=== PATIENT | female | born 1950 | race Caucasian/White ===

== ENCOUNTER 2024-10-18 06:00 | Day surgery (SDC) | payer OTHER ==
[~2024-10-18 06:00] MED LIST: ACTIVELLA 1 MG1 EACH PO; LEVOTHYROXINE25 MCG PO; LEXAPRO5 MG PO; ROSUVASTATIN CA20 MG PO
[2024-10-18] MEDS ORDERED: TRAM1TAB98 PO (09:47)
[2024-10-18] MEDS ORDERED: CHLORHEXIDINE GLUCONATE 120 ML BOTTLE TOP ONE (14:00)
[2024-10-18] MEDS ORDERED: LIDOCAINE HCL 1%/EPINEPHRINE 20ML VIAL IJ ONE (14:00)
[2024-10-18] MEDS ORDERED: CEFAZOLIN SODIUM 1,000 MG VIAL IV ONE (14:00)
[2024-10-18] MEDS ORDERED: GENTAMICIN SULFATE 40 MG/ML VIAL IR ONE (14:00)
[2024-10-24] MEDS ORDERED: GENTAMICIN SULFATE 40 MG/ML VIAL IR ONE (15:00)
[2024-10-24] MEDS ORDERED: CEFAZOLIN SODIUM 1,000 MG VIAL IV ONE (15:00)
== END 2024-10-18 13:40 | disposition home or self-care (01) ==
LOC: CIR.AMB 06:00
PROVIDERS: ATTEND Obstetrics & Gynecology Gynecology
DX: N81.5 Vaginal enterocele (principal); N81.6 Rectocele